=== PATIENT | male | born 1945 | race African-American/Black ===

== ENCOUNTER 2021-11-11 10:23 | Emergency (ER) | payer MEDICARE ==
[~2021-11-11] VITALS: Ht 165.1 cm; Wt 74.0 kg
[~2021-11-11 10:23] MED LIST: CRES10 PO; GABA-532 PO; INSU3INS6 SQ; LINA5TAB PO; LISI-186 PO; PIOG15TA6 PO
[2021-11-11 11:13] VITALS: BP 120/73
[2021-11-11 13:01] LABS: BASOPHILS % 0.3 % (0.0-2.0); EOSINOPHILS % 1.9 % (0.0-5.0); HEMATOCRIT. 36.9 % (42.0-52.0); HEMOGLOBIN. 11.9 g/dL (14.0-18.0); LYMPHOCYTES % 22.9 % (20.0-50.0); MEAN CORPUSCULAR HEMOGLOBIN 25.9 pg (28.0-32.0); MEAN CORPUSCULAR VOLUME 80.5 fL (80.0-94.0); MONOCYTES % 5.2 % (2.0-8.0); NEUTROPHILS % 69.7 % (40.0-76.0); PLATELET 166 x1000/uL (130-400); RED BLOOD CELL COUNT 4.59 mill/uL (4.7-6.1); RED CELL DISTRIBUTION WIDTH 15.6 % (11.6-14.6)
[2021-11-11 13:02] LABS: CLARITY URINE CLEAR (CLEAR); COLOR URINE YELLOW (YELLOW); KETONES URINE TRACE (NEGATIVE); LEUKOCYTE ESTERASE URINE NEGATIVE (NEGATIVE); NITRITE URINE NEGATIVE (NEGATIVE); OCCULT BLOOD URINE NEGATIVE (NEGATIVE); PROTEIN URINE TRACE (NEGATIVE); SPECIFIC GRAVITY URINE 1.019 (1.005-1.030); UROBILINOGEN URINE 0.2 E.U./dL (0.2-1.0)
[2021-11-11 13:09] LABS: CHLORIDE 107 mEq/L (98-107)
[2021-11-11 13:24] LABS: BETA HYDROXYBUTYRATE 0.2 mMol/L (0.0-0.3)
[2021-11-11] MEDS ORDERED: [UNRECOGNIZED DRUG - CODE] MC (14:02)
[2021-11-11] MEDS ORDERED: BLOO-1623 MC (14:02)
[2021-11-11] MEDS ORDERED: LANC-493 TP (14:02)
== END 2021-11-11 14:27 | disposition home or self-care (01) ==
LOC: ER 10:23
DX: E11.65 Type 2 diabetes mellitus with hyperglycemia (principal); I10 Essential (primary) hypertension; E78.00 Pure hypercholesterolemia, unspecified; Z98.890 Other specified postprocedural states; Z88.0 Allergy status to penicillin; Z79.899 Other long term (current) drug therapy
CPT/HCPCS: 36415; 71045; 80053; 81003; 82010; 82962; 85025; 99284